=== PATIENT | female | born 1965 | race Caucasian/White ===

== ENCOUNTER 2020-03-05 06:33 | Outpatient (CLI) | payer BC ==
[2020-03-05 17:38] LABS: SARS-CoV-2 MS2 Positive; SARS-CoV-2 N Gene Negative; SARS-CoV-2 S Gene Negative; SARS-CoV-2 by NAA Not Detected (NotDetected); SARS-CoV-2 orf1ab Negative
== END 2020-03-05 06:34 | disposition home or self-care (01) ==
LOC: LABBT 06:33
PROVIDERS: ATTEND Internal Medicine Gastroenterology
DX: Z12.11 Encounter for screening for malignant neoplasm of colon (principal); Z20.828 Contact with and (suspected) exposure to other viral communicable diseases
CPT/HCPCS: 87635; U0003

== ENCOUNTER 2020-03-10 05:50 | Day surgery (SDC) | payer BC ==
[2020-03-09 13:30] VITALS: BMI 51.3
--- NOTE | 2020-03-10 05:41 | HP ---
HISTORY OF PRESENT ILLNESS: This 54-year-old female comes for a colonoscopy for colon cancer screening. The patient had no specific GI symptoms. Her bowel movements . No family history of . ALLERGIES: SULFA AND CODEINE. SOCIAL HISTORY: Does not smoke or drink alcohol. MEDICAL ILLNESS: 1. Obesity. 2. Hypertension. 3. Depression. 4. Chronic anxiety. 5. Hypothyroidism. 6. . 7. Status post cholecystectomy. 8. Status post hysterectomy. PHYSICAL EXAMINATION: GENERAL: She is obese. Her weight is 296 pounds, pulse is 72, and blood pressure 120/70. CARDIOVASCULAR SYSTEM: Normal heart sounds. LUNGS: Clear to auscultation. ABDOMEN: . Bowel sounds EXTREMITIES: No edema. . DIAGNOSIS: colonoscopy Job ID: [id number]
--- NOTE | 2020-03-10 09:05 | OP ---
DATE OF PROCEDURE: 03/10/2020 OPERATIVE PROCEDURE: Colonoscopy with biopsy. PREOPERATIVE DIAGNOSIS: A 54-year-old female undergoing colonoscopy for colon cancer screening. POSTOPERATIVE DIAGNOSES: 1. Sigmoid diverticular disease. 2. 6 mm sessile sigmoid polyp, removed with biopsy forceps. 3. Hemorrhoids. DESCRIPTION OF PROCEDURE: The patient was placed on her left lateral position and was given sedation by Anesthesia Department. A rectal exam was done before the scope was advanced into the rectum. No lesions felt on rectal exam. A [employer] video colonoscope was introduced into the rectum and advanced all the way to the cecum. The prep is good. The mucosa appears normal throughout the colon with normal vascular pattern. The appendicular opening, ileocecal valve, and cecum, no pathology seen. Withdrawal of scope in the cecum to ascending colon, hepatic flexure, no lesion seen. The transverse colon, splenic flexure, descending colon, no lesion seen. The sigmoid colon showed mild diverticula. She has 6 mm sessile sigmoid polyp removed with biopsy forceps. The rectum showed hemorrhoids. DISCHARGE PLANNING: A 54-year-old female, came for a colonoscopy for colon cancer screening. The colonoscopy showed sigmoid diverticular disease, hemorrhoids, and a small sigmoid polyp. DISCHARGE RECOMMENDATIONS: 1. The patient was advised to call me if she develops abdominal pain, hematochezia or fever. 2. In the absence of any of the above symptoms, she will come back to me in 2 weeks. Recommend repeat colonoscopy in 5 years. Job ID: [id number]
[2020-03-10] MEDS ORDERED: PROPOFOL 200 MG/20 ML VIAL ONE (09:48)
== END 2020-03-10 09:35 | disposition home or self-care (01) ==
LOC: SDC 05:50
PROVIDERS: ATTEND Internal Medicine Gastroenterology
PROC: 0DBN8ZX Excision of Sigmoid Colon, Via Natural or Artificial Opening Endoscopic, Diagnostic (ICD-10-PCS; principal; 2020-03-10)
DX: Z12.11 Encounter for screening for malignant neoplasm of colon (principal); K63.5 Polyp of colon; K57.30 Diverticulosis of large intestine without perforation or abscess without bleeding; K64.9 Unspecified hemorrhoids; Z79.899 Other long term (current) drug therapy; Z88.2 Allergy status to sulfonamides; Z88.5 Allergy status to narcotic agent
CPT/HCPCS: 88305; J2704

== ENCOUNTER 2020-09-24 12:03 | Outpatient (CLI) | payer BC | END 2020-09-24 12:04 | disposition home or self-care (01) | LOC: BICMAMMO 12:03 | PROVIDERS: ATTEND Family Medicine | DX: Z12.31 Encounter for screening mammogram for malignant neoplasm of breast (principal) | CPT/HCPCS: 77063; 77067 ==

== ENCOUNTER 2022-12-02 07:57 | Outpatient (CLI) | payer BC | END 2022-12-02 07:58 | disposition home or self-care (01) | LOC: BICMAMMO 07:57 | PROVIDERS: ATTEND Family Medicine | DX: Z12.31 Encounter for screening mammogram for malignant neoplasm of breast (principal) | CPT/HCPCS: 77063; 77067 ==

== ENCOUNTER 2024-12-03 15:49 | Outpatient (CLI) | payer BC | END 2024-12-03 15:50 | disposition home or self-care (01) | LOC: BICMAMMO 15:49 | PROVIDERS: ATTEND Family Medicine | DX: Z12.31 Encounter for screening mammogram for malignant neoplasm of breast (principal) | CPT/HCPCS: 77063; 77067 ==

== ENCOUNTER 2025-02-25 08:45 | Outpatient (CLI) | payer BC | END 2025-02-25 08:46 | disposition home or self-care (01) | LOC: PET 08:45 | PROVIDERS: ATTEND Internal Medicine | DX: D47.2 Monoclonal gammopathy (principal) | CPT/HCPCS: 78815; A9552 ==